=== PATIENT | male | born 1985 | race Caucasian/White ===

== ENCOUNTER 2017-11-20 15:35 | Emergency (ER) | payer OTHER ==
[~2017-11-20] VITALS: Ht 190.5 cm; Wt 90.7 kg
[2017-11-20] MEDS ORDERED: Lidocaine 1% Plain 30 ml INJ ONE ×2 (15:44→15:45)
[2017-11-20 15:53] VITALS: BP 137/86
--- NOTE | 2017-11-20 16:28 | Emergency Room Report ---
History of Present Illness General Chief Complaint: Shoulder Injury Source: Patient Present Illness MOIRA France is a healthy 32 yo male who presents with right shoulder injury after sliding into base during a kickball game. He ended up falling onto right shoulder. Severe 8/10 pain in right shoulder without radiation. No other injury. No weakness or numbness. Sudden onset of pain during impact. achy sharp quality. No other injury. No hx of surgery. 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: Coded Allergies: No Known Allergies (Unverified , 11/20/17) Patient History Past Medical History: none Past Surgical History: none Social History: Reports: alcohol use - social; Denies: smoking Nursing Documentation-[facility] Past Medical History: No Stated History Review of Systems Constitutional: Denies: fever Cardiovascular: Denies: chest pain Gastrointestinal: Denies: abdominal pain Musculoskeletal: Denies: back pain Physical Exam Vital Signs Date Time Temp Pulse Resp B/P (MAP) Pulse Ox O2 Delivery O2 Flow Rate FiO2 11/20/17 15:43 97.7 71 18 137/86 99 Room Air 97.7 Sp02 EP Interpretation: reviewed, normal General Appearance: normal inspection, well appearing, no apparent distress, alert, GCS 15 Eyes: bilateral eye normal inspection ENT: normal voice Neck: normal inspection, full range of motion Respiratory: no respiratory distress Cardiovascular #2: 2+ radial (R) Musculoskeletal: other - squared off right shoulder, MUR intact distally in RUE , intact deltoid sensation Neurologic: normal inspection, alert, oriented x3, responsive Skin: normal inspection, normal color, no rash, warm/dry Procedures Joint Reduction Joint Reduction : Consent: Verbal Joint Reduction Site: shoulder (R) Procedural Sedation: No Reduction Attempts: One Pre-Procedure NV Exam: Yes Post-Procedure NV Exam: Yes Post Joint Reduction Film: joint reduced Patient Tolerated: Well Complications: None Progress Joint Injection with 1% lidocaine with regional anesthesia. verbal consent obtained for joint injection of the right shoulder Betadine prep 10 mL syringe 21-gauge to injections of total 20 mils 1% lidocaine without epinephrine adequate analgesia achieved, patient tolerated right shoulder manipulation and reduction with mild discomfort, used modified Santiago technique after reduction, medial ulnar radial nerve intact deltoid sensation intact able to range shoulder with mild stiffness, mild swelling noted at the posterior deltoid concern for possible contusion radial pulse intact 2+ after reduction Medical Decision Making Diagnostic Impression: Primary Impression: Anterior shoulder dislocation ER Course Right shoulder anterior dislocation reduced after joint inject with lidocaine. neurovascularly intact after reduction, placed in sling, recommended slow range of motion referred to orthopedic surgeon Other X-Ray Diagnostic Results Other X-Ray Diagnostic Results : X-Ray ordered: right shoulder 3 view # of Views/Limited Vs Complete: 3 View Indication: Pain EP Interpretation: Yes Interpretation: other - anterior dislocation without fracture Electronically Signed by: This image has been electronically signed by Dr. Amelia Lake Reevaluation Time: 16:21 Last Vital Signs Date Time Temp Pulse Resp B/P (MAP) Pulse Ox O2 Delivery O2 Flow Rate FiO2 11/20/17 15:53 97.7 18 137/86 99 Room Air 97.7 11/20/17 15:43 71 Status: improved Reevaluation Impression second right shoulder radiographs exam: successful reduction no fracture Disposition: HOME, SELF-CARE Condition: Stable Scripts No Active Prescriptions or Reported Meds Patient Instructions: Shoulder Dislocation AMELIA LAKE Nov 20, 2017 16:28
--- NOTE | 2017-11-20 16:36 | Diagnostic Imaging Report ---
EXAM: XR Right Shoulder Complete, 2 or More Views CLINICAL HISTORY: FALL TECHNIQUE: Two or more views of the right shoulder. COMPARISON: No relevant prior studies available. FINDINGS: Bones/joints: Anterior shoulder dislocation. Difficult to identify a fracture. Soft tissues: Unremarkable. IMPRESSION: 1. Anterior shoulder dislocation. 2. Difficult to identify a fracture.
[2017-11-20 16:44] VITALS: BP 140/88
--- NOTE | 2017-11-20 17:03 | Diagnostic Imaging Report ---
EXAM: XR Right Shoulder Complete, 2 or More Views CLINICAL HISTORY: PAIN TECHNIQUE: Two or more views of the right shoulder. COMPARISON: Compared with 11/20/17 [id number] FINDINGS: Bones/joints: Interval reduction of the previously seen anterior shoulder dislocation. Normal alignment. No acute fracture. Soft tissues: Unremarkable. IMPRESSION: Interval reduction of the previously seen anterior shoulder dislocation. Normal alignment. No fracture.
== END 2017-11-20 16:44 | disposition home or self-care (01) ==
LOC: EMR 16:00
DX: S43.004A Unspecified dislocation of right shoulder joint, initial encounter (principal); W01.0XXA Fall on same level from slipping, tripping and stumbling without subsequent striking against object, initial encounter; Y93.69 Activity, other involving other sports and athletics played as a team or group; Y92.89 Other specified places as the place of occurrence of the external cause
CPT/HCPCS: 23650; 73030; 96361; 96374; 99284; J2001; J2405